=== PATIENT | female | born 1950 | race Caucasian/White ===

== ENCOUNTER 2016-09-21 07:19 | Day surgery (SDC) | payer BC, MEDICARE ==
--- NOTE | ~2016-09-21 | EGD ---
EGD REPORT [facility] [address] [address] NAME: VALENTINA MANCIA : 50 STATUS : REG [facility] [place] PAT#: [id number] AGE: 66 ADM/REG DATE : 09/21/16 MR#: [id number] REPORT SERV DATE: 09/21/16 DICTATED BY: SHANNAN GUTIERREZ DATE: 09/21/16 REPORT STATUS : Draft TRANSCRIBED BY: [facility] DATE: 09/21/16 Endoscopy Center Patient Name: Valentina Mancia Date of : 1950 Attending MD: SHANNAN GUTIERREZ MD Procedure Date No Time: 09/21/2016 Procedure: Upper GI endoscopy Indications: Epigastric abdominal pain, Abdominal pain in the right upper quadrant Referring MD: YAMILE SEBASTIAN Medicines: See the Anesthesia note for documentation of the administered medications Complications: No immediate complications. Procedure: Pre-Anesthesia Assessment: - ASA Grade Assessment: III - A patient with severe systemic disease. After obtaining informed consent, the endoscope was passed under direct vision. Throughout the procedure, the patient's blood pressure, pulse, and oxygen saturations were monitored continuously. The GIF [id number] was introduced through the mouth, and advanced to the second part of duodenum. The upper GI endoscopy was accomplished without difficulty. The patient tolerated the procedure well. Findings: The examined duodenum was normal. The gastric antrum was normal. Biopsies were taken with a cold forceps for histology. The cardia and gastric fundus were normal on retroflexion. A small hiatus hernia was present. Impression: - Normal examined duodenum. - Normal antrum. Biopsied. - Hiatus hernia. Recommendation: - Patient has a contact number available for emergencies. The signs and symptoms of potential delayed complications were discussed with the patient. Return to normal activities tomorrow. Written discharge instructions were provided to the patient. - Regular diet. - Continue present medications. - FOR YOUR BIOPSY RESULTS: Please go to [email or web address] and register to receive your EGD REPORT [address] [address] NAME: VALENTINA MANCIA : [birth year] STATUS : REG [facility]#: [id number] AGE: 66 ADM/REG DATE : 09/21/16 MR#: [id number] REPORT SERV DATE: 09/21/16 DICTATED BY: SHANNAN GUTIERREZ DATE: 09/21/16 REPORT STATUS : Draft TRANSCRIBED BY: [employer] DATE: 09/21/16 results via the portal. Your biopsy results will be posted there in about 7 to 10 days. IF you do not see result in 10 days, call office. - Follow up with my nurse practitioner in 4 weeks Procedure Code(s): --- Professional --- 04321, Esophagogastroduodenoscopy, flexible, transoral; with biopsy, single or multiple Diagnosis Code(s): --- Professional --- K44.9, Diaphragmatic hernia without obstruction or gangrene R10.13, Epigastric pain R10.11, Right upper quadrant pain CPT copyright 2013 [employer]. All rights reserved. The codes documented in this report are preliminary and upon mortgage lender review may be revised to meet current compliance requirements. Shannan Gutierrez MD SHANNAN GUTIERREZ MD 09/21/2016 9:15 AM This report has been signed electronically. Number of Addenda: 0 Note Initiated On: 09/21/2016 9:02 AM Scope Withdrawal Time 0 hours 0 minutes 0 seconds [address] [place] [id number]
[~2016-09-21 07:19] MED LIST: 8 HOUR650 MG PO; ADVIL PO; AMOXIL500 MG PO; ASAB PO; CIP5 PO; COR20 PO; COR40 PO; FERROUS SULF324 MG PO; FLAG500TAB PO; GLUCPH PO; HALCION0.25 MG PO; K500 PO; MACROBID PO; MAGOX4 PO; MAX25 PO; PCET PO; PERCOCET PO; PHOSPHA 250 PO; PRIN10 PO; PRIN20 PO; PROTONIX PO; SPIRO50 PO; SYSTANE OPH; T3 PO; TYLENOL ARTH650 MG PO; UROGESIC-BLU PO; VYTORIN 10/40 T1 TAB PO; ZESTRIL10 MG PO; ZESTRIL20 MG PO
== END 2016-09-21 23:59 | disposition home or self-care (01) ==
LOC: DMU 07:19
PROVIDERS: Internal Medicine Gastroenterology
PROC: 0DB68ZX Excision of Stomach, Via Natural or Artificial Opening Endoscopic, Diagnostic (ICD-10-PCS; principal; 2016-09-21 09:00)
DX: K44.9 Diaphragmatic hernia without obstruction or gangrene (principal); G47.33 Obstructive sleep apnea (adult) (pediatric); E11.9 Type 2 diabetes mellitus without complications; I10 Essential (primary) hypertension; E78.00 Pure hypercholesterolemia, unspecified; G43.909 Migraine, unspecified, not intractable, without status migrainosus; M19.90 Unspecified osteoarthritis, unspecified site; E66.01 Morbid (severe) obesity due to excess calories; Z88.1 Allergy status to other antibiotic agents; Z99.89 Dependence on other enabling machines and devices; Z88.5 Allergy status to narcotic agent; Z88.8 Allergy status to other drugs, medicaments and biological substances; Z88.2 Allergy status to sulfonamides; Z90.89 Acquired absence of other organs; Z98.890 Other specified postprocedural states; Z79.899 Other long term (current) drug therapy
CPT/HCPCS: 82962; 88305; J2405